=== PATIENT | male | born 1950 | race Caucasian/White ===

== ENCOUNTER 2018-09-22 20:09 | Observation (INO) | payer OTHER ==
[~2018-09-22] VITALS: Ht 185.4 cm; Wt 90.7 kg
[2018-09-22 21:16] LABS: Basophils # (auto) 0.1 uL; Basophils % (auto) 0.7 % (0.0-2.0); Eosinophils # (auto) 0.1 uL; Eosinophils % (auto) 0.9 % (0.0-7.0); Hematocrit 52.8 % (41.0-53.0); Hemoglobin 17.3 g/dL (13.5-17.5); Lymphocytes # (auto) 1.2 uL; Lymphocytes % (auto) 11.2 % (10.0-50.0); Mean Corpuscular Hemoglobin 32.5 pg (28.0-32.0); Mean Corpuscular Hgb Conc. 32.8 g/dL (32.0-36.0); Mean Corpuscular Volume 99.1 fL (80.0-100.0); Monocytes # (auto) 0.7 uL; Monocytes % (auto) 6.1 % (0.0-12.0); Neutrophils # (auto) 8.9 uL; Neutrophils % (auto) 81.1 % (37.0-80.0); Platelet Count (auto) 208 10^3/uL (140-450); Red Blood Cells 5.33 10^6/uL (4.5-5.90)
[2018-09-22 21:34] LABS: Alanine Aminotransferase 59 U/L (16-61); Albumin 3.9 g/dL (3.4-5.0); Anion Gap 12 (5-15); Aspartate Aminotransferase 86 U/L (15-37); Blood Urea Nitrogen 9 mg/dL (7-18); Calcium 9.1 mg/dL (8.5-10.1); Carbon Dioxide 22 mmol/L (21-32); Chloride 99 mmol/L (98-107); GFR African American 72 mL/min; GFR Non-African American 59 mL/min; Glucose 162 mg/dL (74-106); Potassium 4.3 mmol/L (3.5-5.1); Sodium 133 mmol/L (136-145)
[2018-09-22 21:35] LABS: INR 1.11 (0.9-1.15); Partial Thromboplastin Time 28.2 sec (23.78-33.04); Prothrombin Time 11.8 sec (9.27-12.13)
[2018-09-22 21:39] LABS: Alkaline Phosphatase 76 U/L (45-117); Bilirubin, Total 1.2 mg/dL (0.2-1.0); Total Protein 7.4 g/dL (6.4-8.2)
[2018-09-22] MEDS: ALBUTEROL SULF 2.5 MG/0.5ML(0.5%) NEB SOLN NEB ONE (23:45)
[2018-09-22] MEDS: IPRATROPIUM BROM 0.5 MG/2.5ML INH SOL NEB ONE (23:45)
[2018-09-23] MEDS: LORazepam 2MG/ML-1ML VIAL IV ONE (00:09)
[2018-09-23] MEDS: methylPREDNISolone SOD SUCC 125 MG/2 ML VL IV ONE (00:10)
[2018-09-23] MEDS: NITROGLYCERIN 0.2MG/HR TOPICAL PATCH TD ONE (04:45)
[2018-09-23] MEDS: ASPirin-EC 325mg tab PO ONE (04:45)
[2018-09-23 06:00] LABS: Urine Bacteria FEW /hpf (None Seen); Urine Blood 1+ /uL (Negative); Urine Hyaline Cast MANY /lpf (0 - 2); Urine Mucus FEW (None Seen); Urine Specific Gravity 1.017 (1.001-1.035); Urine WBC 2 /hpf (0 - 3)
[2018-09-23] MEDS: SODIUM CHLORIDE 0.9% 500 ML IV ONE (07:11)
[2018-09-23] MEDS: LEVOFLOXACIN 500 MG TAB PO ONE (08:46)
[2018-09-23 09:25] VITALS: BP 160/90
== END 2018-09-23 08:38 | disposition home or self-care (01) | DRG 303 ==
LOC: ER 20:09 → OVERFLOW 20:10 → ER 09-23 08:38
PROVIDERS: ADMIT Emergency Medicine; ATTEND Emergency Medicine
DX: I25.9 Chronic ischemic heart disease, unspecified (principal); E89.0 Postprocedural hypothyroidism; F41.9 Anxiety disorder, unspecified; Z87.891 Personal history of nicotine dependence
CPT/HCPCS: 36415; 36600; 71045; 80053; 81001; 82805; 83880; 84484; 85025; 85379; 85610; 85730; 93005; 94640; 96372; 96374; 99285; G0378; J2060; J2930; J7611; J7644